=== PATIENT | female | born 1995 | race Caucasian/White ===

== ENCOUNTER 2017-01-23 20:07 | Emergency (ER) | payer OTHER ==
[~2017-01-23] VITALS: Ht 165.1 cm; Wt 68.0 kg
[2017-01-23] MEDS ORDERED: HYDROCODONE-ACE15 ML PO (21:16)
[2017-01-23] MEDS ORDERED: SENOKOT-S1 TA1 PO (21:16)
[2017-01-23 21:36] VITALS: BP 110/72
== END 2017-01-23 21:37 | disposition home or self-care (01) ==
LOC: ER 20:07
DX: J03.90 Acute tonsillitis, unspecified (principal); F10.99 Alcohol use, unspecified with unspecified alcohol-induced disorder; M86.9 Osteomyelitis, unspecified